=== PATIENT | male | born 1930 | race Caucasian/White ===

== ENCOUNTER → 2017-11-08 | Outpatient (CLI) | payer MEDICARE, BC | END | disposition home or self-care (01) | LOC: CFH 08:22 | PROVIDERS: ATTEND Internal Medicine Cardiovascular Disease | DX: I10 Essential (primary) hypertension (principal); I25.10 Atherosclerotic heart disease of native coronary artery without angina pectoris; I48.91 Unspecified atrial fibrillation | CPT/HCPCS: 36415; 83880 ==

== ENCOUNTER 2018-01-04 11:36 | Inpatient (IN) | payer MEDICARE, BC ==
[~2018-01-04] VITALS: Ht 170.2 cm; Wt 68.5 kg
[2018-01-04 12:26] LABS: BASOPHILS # (AUTO) 0.07 x10^3/uL (0-0.1); BASOPHILS % (AUTO) 1 % (0-1); EOSINOPHILS # (AUTO) 0.15 x10^3/uL (0-0.4); EOSINOPHILS % (AUTO) 2 % (1-7); LYMPHOCYTES # (AUTO) 1.15 x10^3/uL (1-3.4); LYMPHOCYTES % (AUTO) 14 % (22-44); MD NO; MEAN CORPUSCULAR HEMOGLOBIN 32.2 pg (27.5-34.5); MEAN CORPUSCULAR HGB CONC 33.1 g/dL (33.2-36.2); MEAN CORPUSCULAR VOLUME 97.2 fL (81-97); MEAN PLATELET VOLUME 7.4 fL (7.4-10.4); MONOCYTES # (AUTO) 0.91 x10^3/uL (0.2-0.8); MONOCYTES % (AUTO) 11 % (2-9); NEUTROPHILS # (AUTO) 5.85 x10^3/uL (1.8-6.8); NEUTROPHILS % (AUTO) 72 % (42-75); PLATELET COUNT 288 x10^3/uL (130-400); RED BLOOD COUNT 4.41 x10^6/uL (4.38-5.82); RED CELL DISTRIBUTION WIDTH 15.9 % (9.4-14.8)
[2018-01-04] MEDS ORDERED: SODIUM CHLORIDE FLUSH 10ML SYR IVF ONE (12:30)
[2018-01-04 12:34] LABS: INTERNATIONAL NORMALIZED RATIO 1.12 (0.93-1.1); PROTHROMBIN TIME 11.5 Seconds (9.6-11.5)
[2018-01-04 12:35] LABS: ALBUMIN 3.2 g/dL (3.4-5.0); ANION GAP 12 mmol/L (5-15); CALCIUM 9.2 mg/dL (8.5-10.1); CHLORIDE 103 mmol/L (98-107)
[2018-01-04 12:41] LABS: ALANINE AMINOTRANSFERASE 36 U/L (12-78); ALKALINE PHOSPHATASE 124 U/L (45-117); BILIRUBIN,TOTAL 0.7 mg/dL (0.2-1.0); CREATININE 1.73 mg/dL (0.7-1.3); TOTAL PROTEIN 7.1 g/dL (6.4-8.2); TROPONIN I 0.116 ng/mL (0.000-0.045)
[2018-01-04] MEDS ORDERED: LIDOCAINE PF 2%, 5ML ONE (13:00)
[2018-01-04] MEDS ORDERED: DIGO125T PO (13:25)
[2018-01-04] MEDS ORDERED: CHOL200040 PO (13:25)
[2018-01-04] MEDS ORDERED: MAGN300C PO (13:25)
[2018-01-04] MEDS ORDERED: VITA1TAB19 PO (13:25)
[2018-01-04] MEDS ORDERED: AMIO400T5 PO (13:25)
[2018-01-04] MEDS ORDERED: OMEP-110 PO (13:25)
[2018-01-04] MEDS ORDERED: METO25TA35 PO (13:25)
[2018-01-04] MEDS ORDERED: LISI1TAB3 PO (13:25)
[2018-01-04] MEDS ORDERED: POTA10CA PO (13:25)
[2018-01-04] MEDS ORDERED: FURO20TA3 PO (13:25)
[2018-01-04] MEDS ORDERED: CITA20TA6 PO (13:25)
[2018-01-04] MEDS ORDERED: UMEC1DIS IH (13:25)
[2018-01-04] MEDS ORDERED: LORA1TAB PO (13:25)
[2018-01-04] MEDS ORDERED: APIX2.5T PO (13:25)
[2018-01-04] MEDS ORDERED: SODIUM CHLORIDE FLUSH 10ML SYR IVF PRN (13:30)
[2018-01-04] MEDS ORDERED: LABETALOL 5MG/ML, 20ML IVPush PRN (15:00)
[2018-01-04] MEDS ORDERED: LORazepam 1MG TABLET PO PRN (15:00)
[2018-01-04] MEDS ORDERED: ENALAPRILAT 1.25 MG/ML, 2ML IVPush PRN (15:00)
[2018-01-04] MEDS ORDERED: HEPARIN 5,000 UNITS/ML, 1ML SQ SCH (15:00)
[2018-01-04] MEDS ORDERED: ACETAMINOPHEN 325 MG TABLET PO PRN (15:00)
[2018-01-04 15:51] LABS: TROPONIN I 0.122 ng/mL (0.000-0.045)
[2018-01-04] MEDS ORDERED: POTASSIUM CHLORIDE 20 MEQ TAB.ER.PRT PO ONE (16:00)
[2018-01-04] MEDS ORDERED: HEPARIN 5,000 UNITS/ML, 1ML IV ONE (16:30)
[2018-01-04] MEDS ORDERED: HEPARIN 5,000 UNITS/ML, 1ML IV PRN (16:30)
[2018-01-04] MEDS: HEPARIN 25,000 UNITS/500ML PMX 500 ML IV PRN (18:34)
[2018-01-04 19:52] VITALS: BP 115/67
[2018-01-04 20:26] VITALS: BP 122/73
[2018-01-05 00:03] VITALS: BP 111/65
[2018-01-05] MEDS: POTASSIUM CHLORIDE 20 MEQ TAB.ER.PRT PO SCH ×3 (01:13→16:58)
[2018-01-05 01:51] LABS: BASOPHILS # (AUTO) 0.04 x10^3/uL (0-0.1); BASOPHILS % (AUTO) 0 % (0-1); EOSINOPHILS # (AUTO) 0.07 x10^3/uL (0-0.4); EOSINOPHILS % (AUTO) 1 % (1-7); LYMPHOCYTES # (AUTO) 1.33 x10^3/uL (1-3.4); LYMPHOCYTES % (AUTO) 14 % (22-44); MD NO; MEAN CORPUSCULAR HEMOGLOBIN 33.2 pg (27.5-34.5); MEAN CORPUSCULAR HGB CONC 34.1 g/dL (33.2-36.2); MEAN CORPUSCULAR VOLUME 97.4 fL (81-97); MEAN PLATELET VOLUME 7.8 fL (7.4-10.4); MONOCYTES # (AUTO) 1.12 x10^3/uL (0.2-0.8); MONOCYTES % (AUTO) 12 % (2-9); NEUTROPHILS # (AUTO) 7.08 x10^3/uL (1.8-6.8); NEUTROPHILS % (AUTO) 74 % (42-75); PLATELET COUNT 285 x10^3/uL (130-400); RED BLOOD COUNT 4.48 x10^6/uL (4.38-5.82); RED CELL DISTRIBUTION WIDTH 16.5 % (9.4-14.8)
[2018-01-05 02:02] LABS: ANION GAP 6 mmol/L (5-15); CALCIUM 9.4 mg/dL (8.5-10.1); CHLORIDE 103 mmol/L (98-107); CREATININE 1.74 mg/dL (0.7-1.3)
[2018-01-05 08:55] VITALS: BP 122/69
[2018-01-05] MEDS ORDERED: SENNA/DOCUSATE TABLET PO SCH (09:00)
[2018-01-05] MEDS ORDERED: MAGNESIUM HYDROXIDE 8%, 30ML UDC PO SCH (09:00)
[2018-01-05] MEDS: LISINOPRIL PO SCH (09:30)
[2018-01-05] MEDS: OMEPRAZOLE 20 MG CAPSULE.DR PO SCH (09:30)
[2018-01-05] MEDS: [UNRECOGNIZED DRUG - OTHER] PO SCH (09:30)
[2018-01-05] MEDS: HYDROCHLOROTHIAZIDE PO SCH (09:30)
[2018-01-05] MEDS: MAGNESIUM OXIDE 400 MG TABLET PO SCH (09:31)
[2018-01-05] MEDS: AMIODARONE 200 MG TABLET PO SCH (09:31)
[2018-01-05] MEDS: MULTIVITS,STRESS FORMULA 1 TABLET PO SCH (09:32)
[2018-01-05] MEDS: METOPROLOL TARTRATE 25 MG TABLET PO SCH (09:32)
[2018-01-05] MEDS: CHOLECALCIFEROL 1,000 UNIT TABLET PO SCH (09:32)
[2018-01-05 13:52] VITALS: BP 150/79
[2018-01-05] MEDS: HEPARIN 25,000 UNITS/500ML PMX 500 ML IV PRN (17:03)
[2018-01-05] MEDS ORDERED: BISACODYL 10 MG SUPP PR PRN (18:30)
[2018-01-05 20:44] VITALS: BP 161/76
[2018-01-06 00:54] VITALS: BP 137/76
[2018-01-06 07:54] VITALS: BP 161/85
[2018-01-06 08:05] LABS: MEAN CORPUSCULAR HEMOGLOBIN 33.2 pg (27.5-34.5); MEAN CORPUSCULAR HGB CONC 33.9 g/dL (33.2-36.2); MEAN CORPUSCULAR VOLUME 97.8 fL (81-97); MEAN PLATELET VOLUME 8.3 fL (7.4-10.4); PLATELET COUNT 204 x10^3/uL (130-400); RED BLOOD COUNT 3.93 x10^6/uL (4.38-5.82); RED CELL DISTRIBUTION WIDTH 16.4 % (9.4-14.8)
[2018-01-06 08:15] LABS: ANION GAP 7 mmol/L (5-15); CALCIUM 8.8 mg/dL (8.5-10.1); CHLORIDE 106 mmol/L (98-107)
[2018-01-06 08:16] LABS: CREATININE 1.35 mg/dL (0.7-1.3)
[2018-01-06 08:55] LABS: BASOPHILS # (AUTO) 0.08 x10^3/uL (0-0.1); BASOPHILS % (AUTO) 1 % (0-1); EOSINOPHILS # (AUTO) 0.19 x10^3/uL (0-0.4); EOSINOPHILS % (AUTO) 3 % (1-7); LYMPHOCYTES # (AUTO) 1.24 x10^3/uL (1-3.4); LYMPHOCYTES % (AUTO) 19 % (22-44); MONOCYTES # (AUTO) 0.92 x10^3/uL (0.2-0.8); MONOCYTES % (AUTO) 14 % (2-9); NEUTROPHILS # (AUTO) 4.15 x10^3/uL (1.8-6.8); NEUTROPHILS % (AUTO) 63 % (42-75)
[2018-01-06 09:04] LABS: MD SCAN
[2018-01-06] MEDS: POTASSIUM CHLORIDE 20 MEQ TAB.ER.PRT PO SCH ×2 (09:37→18:21)
[2018-01-06] MEDS: AMIODARONE 200 MG TABLET PO SCH (09:37)
[2018-01-06] MEDS: OMEPRAZOLE 20 MG CAPSULE.DR PO SCH (09:37)
[2018-01-06] MEDS: MULTIVITS,STRESS FORMULA 1 TABLET PO SCH (09:38)
[2018-01-06] MEDS: CHOLECALCIFEROL 1,000 UNIT TABLET PO SCH (09:39)
[2018-01-06] MEDS: METOPROLOL TARTRATE 25 MG TABLET PO SCH (09:39)
[2018-01-06] MEDS: MAGNESIUM OXIDE 400 MG TABLET PO SCH (09:39)
[2018-01-06] MEDS: [UNRECOGNIZED DRUG - OTHER] PO SCH (09:42)
[2018-01-06] MEDS: LISINOPRIL PO SCH (09:42)
[2018-01-06] MEDS: HYDROCHLOROTHIAZIDE PO SCH (09:42)
[2018-01-06 13:59] VITALS: BP 138/84
[2018-01-06] MEDS ORDERED: LIDOCAINE-MPF 2%, 2ML ONE ×2 (16:00→16:39)
[2018-01-06] MEDS ORDERED: FENTANYL PF 100 MCG/2ML ONE (16:01)
[2018-01-06 20:15] VITALS: BP 138/83
[2018-01-07 00:22] VITALS: BP 154/80
[2018-01-07] MEDS: HEPARIN 25,000 UNITS/500ML PMX 500 ML IV PRN (00:27)
[2018-01-07 07:47] VITALS: BP 154/75
[2018-01-07] MEDS: HYDROCHLOROTHIAZIDE PO SCH (07:54)
[2018-01-07] MEDS: LISINOPRIL PO SCH (07:54)
[2018-01-07] MEDS: [UNRECOGNIZED DRUG - OTHER] PO SCH (07:54)
[2018-01-07] MEDS: MULTIVITS,STRESS FORMULA 1 TABLET PO SCH (08:13)
[2018-01-07] MEDS: OMEPRAZOLE 20 MG CAPSULE.DR PO SCH (08:14)
[2018-01-07] MEDS: CHOLECALCIFEROL 1,000 UNIT TABLET PO SCH (08:14)
[2018-01-07] MEDS: METOPROLOL TARTRATE 25 MG TABLET PO SCH (08:15)
[2018-01-07] MEDS: AMIODARONE 200 MG TABLET PO SCH (08:15)
[2018-01-07] MEDS: POTASSIUM CHLORIDE 20 MEQ TAB.ER.PRT PO SCH ×2 (08:15→21:26)
[2018-01-07] MEDS: MAGNESIUM OXIDE 400 MG TABLET PO SCH (08:16)
[2018-01-07 09:20] LABS: BASOPHILS # (AUTO) 0.06 x10^3/uL (0-0.1); BASOPHILS % (AUTO) 1 % (0-1); EOSINOPHILS # (AUTO) 0.17 x10^3/uL (0-0.4); EOSINOPHILS % (AUTO) 3 % (1-7); LYMPHOCYTES # (AUTO) 1.01 x10^3/uL (1-3.4); LYMPHOCYTES % (AUTO) 15 % (22-44); MD NO; MEAN CORPUSCULAR HEMOGLOBIN 32.7 pg (27.5-34.5); MEAN CORPUSCULAR HGB CONC 33.3 g/dL (33.2-36.2); MEAN CORPUSCULAR VOLUME 98.2 fL (81-97); MEAN PLATELET VOLUME 8.2 fL (7.4-10.4); MONOCYTES # (AUTO) 0.66 x10^3/uL (0.2-0.8); MONOCYTES % (AUTO) 10 % (2-9); NEUTROPHILS # (AUTO) 4.77 x10^3/uL (1.8-6.8); NEUTROPHILS % (AUTO) 72 % (42-75); PLATELET COUNT 236 x10^3/uL (130-400); RED CELL DISTRIBUTION WIDTH 16.7 % (9.4-14.8)
[2018-01-07 09:27] LABS: ANION GAP 3 mmol/L (5-15); CALCIUM 8.8 mg/dL (8.5-10.1); CHLORIDE 108 mmol/L (98-107); CREATININE 1.32 mg/dL (0.7-1.3)
[2018-01-07 13:53] VITALS: BP 129/68
[2018-01-07 20:41] VITALS: BP 127/72
[2018-01-08 00:59] VITALS: BP 133/68
[2018-01-08 07:09] VITALS: BP 148/80
[2018-01-08] MEDS: HEPARIN 25,000 UNITS/500ML PMX 500 ML IV PRN (07:23)
[2018-01-08] MEDS: LISINOPRIL PO SCH (09:00)
[2018-01-08] MEDS: [UNRECOGNIZED DRUG - OTHER] PO SCH (09:00)
[2018-01-08] MEDS: HYDROCHLOROTHIAZIDE PO SCH (09:00)
[2018-01-08] MEDS: POTASSIUM CHLORIDE 20 MEQ TAB.ER.PRT PO SCH ×2 (11:30→17:23)
[2018-01-08] MEDS: OMEPRAZOLE 20 MG CAPSULE.DR PO SCH (11:30)
[2018-01-08] MEDS: METOPROLOL TARTRATE 25 MG TABLET PO SCH (11:30)
[2018-01-08] MEDS: CHOLECALCIFEROL 1,000 UNIT TABLET PO SCH (11:30)
[2018-01-08] MEDS: MULTIVITS,STRESS FORMULA 1 TABLET PO SCH (11:30)
[2018-01-08] MEDS: MAGNESIUM OXIDE 400 MG TABLET PO SCH (11:31)
[2018-01-08] MEDS: AMIODARONE 200 MG TABLET PO SCH (11:32)
[2018-01-08 16:07] VITALS: BP 160/78
[2018-01-08 19:15] VITALS: BP 148/78
[2018-01-09 00:19] VITALS: BP 156/75
[2018-01-09 07:31] VITALS: BP 133/66
[2018-01-09 08:03] LABS: ALBUMIN 2.5 g/dL (3.4-5.0); ANION GAP 5 mmol/L (5-15); CALCIUM 8.6 mg/dL (8.5-10.1); CHLORIDE 108 mmol/L (98-107); CREATININE 1.31 mg/dL (0.7-1.3)
[2018-01-09 08:18] LABS: BASOPHILS # (AUTO) 0.03 x10^3/uL (0-0.1); BASOPHILS % (AUTO) 1 % (0-1); EOSINOPHILS # (AUTO) 0.17 x10^3/uL (0-0.4); EOSINOPHILS % (AUTO) 3 % (1-7); LYMPHOCYTES # (AUTO) 1.18 x10^3/uL (1-3.4); LYMPHOCYTES % (AUTO) 20 % (22-44); MD NO; MEAN CORPUSCULAR HEMOGLOBIN 32.9 pg (27.5-34.5); MEAN CORPUSCULAR HGB CONC 33.3 g/dL (33.2-36.2); MEAN CORPUSCULAR VOLUME 98.8 fL (81-97); MONOCYTES # (AUTO) 0.62 x10^3/uL (0.2-0.8); MONOCYTES % (AUTO) 10 % (2-9); NEUTROPHILS # (AUTO) 3.98 x10^3/uL (1.8-6.8); NEUTROPHILS % (AUTO) 67 % (42-75); PLATELET COUNT 229 x10^3/uL (130-400); RED BLOOD COUNT 3.89 x10^6/uL (4.38-5.82); RED CELL DISTRIBUTION WIDTH 16.8 % (9.4-14.8)
[2018-01-09] MEDS: OMEPRAZOLE 20 MG CAPSULE.DR PO SCH (08:23)
[2018-01-09] MEDS ORDERED: APIXABAN 2.5 MG TABLET PO SCH (09:00)
[2018-01-09] MEDS: [UNRECOGNIZED DRUG - OTHER] PO SCH (09:00)
[2018-01-09] MEDS: LISINOPRIL PO SCH (09:00)
[2018-01-09] MEDS: HYDROCHLOROTHIAZIDE PO SCH (09:00)
[2018-01-09] MEDS: MULTIVITS,STRESS FORMULA 1 TABLET PO SCH (09:21)
[2018-01-09] MEDS: MAGNESIUM OXIDE 400 MG TABLET PO SCH (09:21)
[2018-01-09] MEDS: POTASSIUM CHLORIDE 20 MEQ TAB.ER.PRT PO SCH (09:21)
[2018-01-09] MEDS: CHOLECALCIFEROL 1,000 UNIT TABLET PO SCH (09:21)
[2018-01-09] MEDS: AMIODARONE 200 MG TABLET PO SCH (09:22)
[2018-01-09] MEDS: METOPROLOL TARTRATE 25 MG TABLET PO SCH (09:22)
== END 2018-01-09 15:48 | disposition home or self-care (01) | DRG 186 ==
LOC: ED 13:04 → EDIP 13:05 → ED 13:18 → 5SO 14:12 → DCLOUNGE 01-09 15:30
PROVIDERS: ADMIT Internal Medicine; ATTEND Internal Medicine
PROC: 0W993ZZ Drainage of Right Pleural Cavity, Percutaneous Approach (ICD-10-PCS; principal; 2018-01-04)
PROC: 0W9930Z Drainage of Right Pleural Cavity with Drainage Device, Percutaneous Approach (ICD-10-PCS; 2018-01-06)
DX: J90 Pleural effusion, not elsewhere classified (principal); J96.01 Acute respiratory failure with hypoxia; D68.69 Other thrombophilia; E44.0 Moderate protein-calorie malnutrition; N17.9 Acute kidney failure, unspecified; J93.9 Pneumothorax, unspecified; Z68.23 Body mass index [BMI] 23.0-23.9, adult; E87.6 Hypokalemia; I12.9 Hypertensive chronic kidney disease with stage 1 through stage 4 chronic kidney disease, or unspecified chronic kidney disease; I48.0 Paroxysmal atrial fibrillation; K59.00 Constipation, unspecified; N18.9 Chronic kidney disease, unspecified; Z79.01 Long term (current) use of anticoagulants; Z82.49 Family history of ischemic heart disease and other diseases of the circulatory system
CPT/HCPCS: 32557; 36415; 71045; 71046; 71250; 74018; 80048; 80053; 80162; 82040; 83615; 83735; 83880; 83986; 84100; 84157; 84443; 84484; 85025; 85520; 85610; 85730; 87070; 87075; 87205; 88112; 88305; 89051; 93005; 93306; 99285; J1644; J3010; J3490; 32555

== ENCOUNTER → 2018-03-14 | Outpatient (CLI) | payer MEDICARE, BC ==
[~2018-03-14] MED LIST: AMIO400T5 PO; APIX2.5T PO; CHOL200040 PO; CITA20TA6 PO; DIGO125T PO; FURO20TA3 PO; LISI1TAB3 PO; LORA1TAB PO; MAGN300C PO; METO25TA35 PO; OMEP-110 PO; POTA10CA PO; UMEC1DIS IH; VITA1TAB19 PO
== END | disposition home or self-care (01) ==
LOC: CFH 07:44
PROVIDERS: ATTEND Internal Medicine Cardiovascular Disease
DX: I10 Essential (primary) hypertension (principal); I25.10 Atherosclerotic heart disease of native coronary artery without angina pectoris; I48.91 Unspecified atrial fibrillation
CPT/HCPCS: 36415; 83880

== ENCOUNTER 2018-09-21 08:11 | Inpatient (IN) | payer MEDICARE, BC ==
[~2018-09-21] VITALS: Ht 172.7 cm; Wt 68.0 kg
[2018-09-21] MEDS ORDERED: LEVO50TA5 PO (08:40)
[2018-09-21] MEDS ORDERED: AMIO100T4 PO (08:40)
[2018-09-21] MEDS ORDERED: ALBUTEROL/IPRATROPIUM 2.5MG/0.5MG, 3 ML ONE (08:44)
[2018-09-21 08:48] LABS: BASOPHILS # (AUTO) 0.06 x10^3/uL (0-0.1); BASOPHILS % (AUTO) 1 % (0-1); EOSINOPHILS # (AUTO) 0.16 x10^3/uL (0-0.4); EOSINOPHILS % (AUTO) 3 % (1-7); LYMPHOCYTES # (AUTO) 0.79 x10^3/uL (1-3.4); LYMPHOCYTES % (AUTO) 12 % (22-44); MD NO; MEAN CORPUSCULAR HEMOGLOBIN 32.8 pg (27.5-34.5); MEAN CORPUSCULAR VOLUME 99.3 fL (81-97); MEAN PLATELET VOLUME 6.9 fL (7.4-10.4); MONOCYTES # (AUTO) 0.64 x10^3/uL (0.2-0.8); MONOCYTES % (AUTO) 10 % (2-9); NEUTROPHILS # (AUTO) 4.91 x10^3/uL (1.8-6.8); NEUTROPHILS % (AUTO) 75 % (42-75); PLATELET COUNT 246 x10^3/uL (130-400); RED BLOOD COUNT 4.27 x10^6/uL (4.38-5.82); RED CELL DISTRIBUTION WIDTH 16.2 % (9.4-14.8)
[2018-09-21 09:00] LABS: ALANINE AMINOTRANSFERASE 29 U/L (12-78); ALBUMIN 3.7 g/dL (3.4-5.0); ANION GAP 3 mmol/L (5-15); CALCIUM 9.3 mg/dL (8.5-10.1); CHLORIDE 107 mmol/L (98-107); CREATININE 1.57 mg/dL (0.7-1.3)
[2018-09-21] MEDS ORDERED: ALBUTEROL/IPRATROPIUM 2.5MG/0.5MG, 3 ML NPPB SCH (09:00)
[2018-09-21 09:03] LABS: ALKALINE PHOSPHATASE 148 U/L (45-117); BILIRUBIN,TOTAL 0.7 mg/dL (0.2-1.0); TOTAL PROTEIN 7.9 g/dL (6.4-8.2); TROPONIN I 0.055 ng/mL (0.000-0.045)
--- NOTE | 2018-09-21 09:10 | NUR ---
Pt BIB family from home for sudden onset SOB at 430 this AM. Pt states hx of CHF. lungs course. No CP. Pt very hard of hearing.
--- NOTE | 2018-09-21 09:26 | NUR ---
Pt is very [place]. L ear is better
--- NOTE | 2018-09-21 09:26 | NUR ---
2 sets blood cultures drawn
[2018-09-21] MEDS ORDERED: CEFTRIAXONE PMX 1GM/50ML 50 ML ONE (09:28)
[2018-09-21] MEDS ORDERED: CEFTRIAXONE PMX 1GM/50ML 50 ML IV ONE (09:30)
[2018-09-21 10:40] VITALS: BP 174/87
[2018-09-21] MEDS ORDERED: LORazepam 1MG TABLET PO PRN (11:00)
[2018-09-21] MEDS: OMEPRAZOLE 20 MG CAPSULE.DR PO SCH (11:11)
[2018-09-21] MEDS: AMIODARONE 200 MG TABLET PO SCH (11:11)
[2018-09-21] MEDS: CITALOPRAM 20 MG TABLET PO SCH (11:11)
[2018-09-21] MEDS: APIXABAN 2.5 MG TABLET PO SCH ×2 (11:11→21:07)
[2018-09-21] MEDS: POTASSIUM CHLORIDE 10 MEQ TABLET.ER PO SCH ×2 (11:11→21:07)
[2018-09-21] MEDS: MAGNESIUM OXIDE 400 MG TABLET PO SCH (11:12)
[2018-09-21] MEDS: LISINOPRIL 10 MG TABLET PO SCH (11:12)
[2018-09-21] MEDS: FUROSEMIDE 40 MG/4 ML IV SCH (11:13)
[2018-09-21] MEDS: METOPROLOL TARTRATE 25 MG TABLET PO SCH (11:13)
[2018-09-21 12:55] VITALS: BP 143/68
[2018-09-21] MEDS ORDERED: APIXABAN 2.5 MG TABLET PO SCH (21:00)
[2018-09-21] MEDS ORDERED: POTASSIUM CHLORIDE 10 MEQ TABLET.ER PO SCH (21:00)
[2018-09-21 21:11] VITALS: BP 114/64
[2018-09-22 02:36] VITALS: BP 145/80
[2018-09-22] MEDS ORDERED: LEVOTHYROXINE 50 MCG TABLET PO SCH (06:00)
[2018-09-22 06:23] LABS: BASOPHILS # (AUTO) 0.02 x10^3/uL (0-0.1); BASOPHILS % (AUTO) 0 % (0-1); EOSINOPHILS # (AUTO) 0.24 x10^3/uL (0-0.4); EOSINOPHILS % (AUTO) 4 % (1-7); LYMPHOCYTES # (AUTO) 0.98 x10^3/uL (1-3.4); LYMPHOCYTES % (AUTO) 16 % (22-44); MD NO; MEAN CORPUSCULAR HEMOGLOBIN 33.4 pg (27.5-34.5); MEAN CORPUSCULAR HGB CONC 34.1 g/dL (33.2-36.2); MEAN PLATELET VOLUME 7.3 fL (7.4-10.4); MONOCYTES # (AUTO) 0.85 x10^3/uL (0.2-0.8); MONOCYTES % (AUTO) 14 % (2-9); NEUTROPHILS # (AUTO) 4.04 x10^3/uL (1.8-6.8); NEUTROPHILS % (AUTO) 66 % (42-75); PLATELET COUNT 220 x10^3/uL (130-400); RED BLOOD COUNT 4.07 x10^6/uL (4.38-5.82); RED CELL DISTRIBUTION WIDTH 15.8 % (9.4-14.8)
[2018-09-22 06:30] LABS: ANION GAP 5 mmol/L (5-15); CALCIUM 9.2 mg/dL (8.5-10.1); CHLORIDE 109 mmol/L (98-107)
[2018-09-22 06:33] LABS: CREATININE 1.48 mg/dL (0.7-1.3)
[2018-09-22 07:48] VITALS: BP 169/86
[2018-09-22] MEDS: POTASSIUM CHLORIDE 10 MEQ TABLET.ER PO SCH (08:26)
[2018-09-22] MEDS: CITALOPRAM 20 MG TABLET PO SCH (08:26)
[2018-09-22] MEDS: LISINOPRIL 10 MG TABLET PO SCH (08:27)
[2018-09-22] MEDS: METOPROLOL TARTRATE 25 MG TABLET PO SCH (08:27)
[2018-09-22] MEDS: APIXABAN 2.5 MG TABLET PO SCH (08:27)
[2018-09-22] MEDS: OMEPRAZOLE 20 MG CAPSULE.DR PO SCH (08:27)
[2018-09-22] MEDS: AMIODARONE 200 MG TABLET PO SCH (08:27)
[2018-09-22] MEDS: MAGNESIUM OXIDE 400 MG TABLET PO SCH (08:27)
[2018-09-22] MEDS: FUROSEMIDE 40 MG/4 ML IV SCH (08:28)
[2018-09-22] MEDS ORDERED: AMIODARONE 200 MG TABLET PO SCH (09:00)
[2018-09-22] MEDS ORDERED: LISINOPRIL 10 MG TABLET PO SCH ×2 (09:00)
[2018-09-22] MEDS ORDERED: FUROSEMIDE 40 MG/4 ML IV SCH (09:00)
[2018-09-22] MEDS ORDERED: MAGNESIUM OXIDE 400 MG TABLET PO SCH (09:00)
[2018-09-22] MEDS ORDERED: METOPROLOL TARTRATE 25 MG TABLET PO SCH (09:00)
[2018-09-22] MEDS ORDERED: CITALOPRAM 20 MG TABLET PO SCH (09:00)
[2018-09-22] MEDS ORDERED: OMEPRAZOLE 20 MG CAPSULE.DR PO SCH (09:00)
[2018-09-22 12:53] VITALS: BP 158/73
[2018-09-22] MEDS ORDERED: FURO40TA6 PO (15:49)
[2018-09-22] MEDS ORDERED: LISI-170 PO (15:49)
== END 2018-09-22 17:50 | disposition home or self-care (01) | DRG 291 ==
LOC: ED 09:18 → EDIP 09:20 → 4EST 10:28
PROVIDERS: ADMIT Internal Medicine; ATTEND Internal Medicine
DX: I13.0 Hypertensive heart and chronic kidney disease with heart failure and stage 1 through stage 4 chronic kidney disease, or unspecified chronic kidney disease (principal); I50.43 Acute on chronic combined systolic (congestive) and diastolic (congestive) heart failure; J18.9 Pneumonia, unspecified organism; I48.0 Paroxysmal atrial fibrillation; I25.10 Atherosclerotic heart disease of native coronary artery without angina pectoris; J45.909 Unspecified asthma, uncomplicated; K21.9 Gastro-esophageal reflux disease without esophagitis; N18.3 Chronic kidney disease, stage 3 (moderate); Z79.01 Long term (current) use of anticoagulants; Z82.3 Family history of stroke; Z82.49 Family history of ischemic heart disease and other diseases of the circulatory system; Z95.5 Presence of coronary angioplasty implant and graft; Z95.0 Presence of cardiac pacemaker
CPT/HCPCS: 36415; 71045; 80048; 80053; 83605; 83880; 84145; 84484; 85025; 87040; 93005; 93306; 94640; 96365; 99285; G0378; J0696; J1940; J7620

== ENCOUNTER → 2018-11-10 | Outpatient (CLI) | payer MEDICARE, BC ==
[~2018-11-10] MED LIST changes: +AMIO100T4 PO; +FURO40TA6 PO; +LEVO50TA5 PO; +LISI-170 PO
== END | disposition home or self-care (01) ==
LOC: CFH 07:17
PROVIDERS: ATTEND Nurse Practitioner Family
DX: I42.9 Cardiomyopathy, unspecified (principal); I48.91 Unspecified atrial fibrillation; Z95.0 Presence of cardiac pacemaker
CPT/HCPCS: 71046